=== PATIENT | female | born 1980 | race Hispanic/Latino ===

== ENCOUNTER → 2018-10-27 | Outpatient (CLI) | payer MEDICAID ==
[2018-10-27 15:59] VITALS: BP 136/80
== END | disposition home or self-care (01) ==
LOC: WHH 10:45
PROVIDERS: ATTEND Surgery
DX: L89.323 Pressure ulcer of left buttock, stage 3 (principal); L89.223 Pressure ulcer of left hip, stage 3; M41.9 Scoliosis, unspecified; G80.9 Cerebral palsy, unspecified
CPT/HCPCS: 11042; 87070; 87077; 87186; 99205; A6213

== ENCOUNTER → 2018-10-31 | Outpatient (CLI) | payer MEDICAID ==
[~2018-10-31] MED LIST: LIDOCAINE HCL 2% JELLY 5 ML ONE
[2018-10-31 13:38] VITALS: BP 145/110
== END | disposition home or self-care (01) ==
LOC: WHH 10:00
PROVIDERS: ATTEND Surgery
DX: L89.323 Pressure ulcer of left buttock, stage 3 (principal); L89.223 Pressure ulcer of left hip, stage 3; G80.9 Cerebral palsy, unspecified; M41.9 Scoliosis, unspecified
CPT/HCPCS: 99214; A6213

== ENCOUNTER → 2018-11-07 | Outpatient (CLI) | payer MEDICAID ==
[2018-11-07 13:41] VITALS: BP 125/88
== END | disposition home or self-care (01) ==
LOC: WHH 10:10
PROVIDERS: ATTEND Surgery
DX: L89.323 Pressure ulcer of left buttock, stage 3 (principal); L89.223 Pressure ulcer of left hip, stage 3; G80.9 Cerebral palsy, unspecified; M41.9 Scoliosis, unspecified
CPT/HCPCS: 11042; 97605; A6021

== ENCOUNTER → 2018-11-10 | Outpatient (CLI) | payer MEDICAID ==
[~2018-11-10] MED LIST changes: +HONEY 1 APPL/ML TUBE TP ONE; -LIDOCAINE HCL 2% JELLY 5 ML ONE
[2018-11-10 17:07] VITALS: BP 118/77
== END | disposition home or self-care (01) ==
LOC: WHH 14:00
PROVIDERS: ATTEND Surgery
DX: L89.323 Pressure ulcer of left buttock, stage 3 (principal); L89.223 Pressure ulcer of left hip, stage 3; G80.9 Cerebral palsy, unspecified; M41.9 Scoliosis, unspecified
CPT/HCPCS: 11042; 87070; 87077 ×2; 87186 ×2; A6209; A6213

== ENCOUNTER → 2018-11-17 | Outpatient (CLI) | payer MEDICAID ==
[~2018-11-17] MED LIST changes: -HONEY 1 APPL/ML TUBE TP ONE; +LIDOCAINE HCL 2% JELLY 5 ML ONE
[2018-11-17 15:29] VITALS: BP 100/64
== END | disposition home or self-care (01) ==
LOC: WHH 14:00
PROVIDERS: ATTEND Surgery
DX: L89.323 Pressure ulcer of left buttock, stage 3 (principal); L89.223 Pressure ulcer of left hip, stage 3; G80.9 Cerebral palsy, unspecified; M41.9 Scoliosis, unspecified
CPT/HCPCS: 11042; A6209; A6214

== ENCOUNTER → 2018-11-24 | Outpatient (CLI) | payer MEDICAID ==
[2018-11-24 14:58] VITALS: BP 136/109
== END | disposition home or self-care (01) ==
LOC: WHH 14:00
PROVIDERS: ATTEND Surgery
DX: L89.223 Pressure ulcer of left hip, stage 3 (principal); L89.323 Pressure ulcer of left buttock, stage 3; L89.159 Pressure ulcer of sacral region, unspecified stage; G80.9 Cerebral palsy, unspecified; M41.9 Scoliosis, unspecified
CPT/HCPCS: 99214; A6209; A6214

== ENCOUNTER → 2018-12-08 | Outpatient (CLI) | payer MEDICAID ==
[2018-12-08 16:36] VITALS: BP 128/55
== END | disposition home or self-care (01) ==
LOC: WHH 14:30
PROVIDERS: ATTEND Surgery
DX: L89.223 Pressure ulcer of left hip, stage 3 (principal); L89.323 Pressure ulcer of left buttock, stage 3; G80.9 Cerebral palsy, unspecified; M41.9 Scoliosis, unspecified
CPT/HCPCS: 11042; A6021; A6197; A6214

== ENCOUNTER → 2018-12-15 | Outpatient (CLI) | payer MEDICAID ==
[2018-12-15 16:04] VITALS: BP 91/56
== END | disposition home or self-care (01) ==
LOC: WHH 14:00
PROVIDERS: ATTEND Surgery
DX: L89.223 Pressure ulcer of left hip, stage 3 (principal); L89.323 Pressure ulcer of left buttock, stage 3; G80.9 Cerebral palsy, unspecified; E05.90 Thyrotoxicosis, unspecified without thyrotoxic crisis or storm; M41.9 Scoliosis, unspecified
CPT/HCPCS: 99214; A6021; A6197

== ENCOUNTER → 2018-12-29 | Outpatient (CLI) | payer MEDICAID ==
[2018-12-29 15:26] VITALS: BP 117/69
== END | disposition home or self-care (01) ==
LOC: WHH 14:00
PROVIDERS: ATTEND Surgery
DX: L89.223 Pressure ulcer of left hip, stage 3 (principal); L89.329 Pressure ulcer of left buttock, unspecified stage; G80.9 Cerebral palsy, unspecified; M41.9 Scoliosis, unspecified
CPT/HCPCS: 99215; A6022; A6214

== ENCOUNTER → 2019-01-05 | Outpatient (CLI) | payer MEDICAID ==
[2019-01-05 15:23] VITALS: BP 103/54
== END | disposition home or self-care (01) ==
LOC: WHH 14:00
PROVIDERS: ATTEND Surgery
DX: L89.223 Pressure ulcer of left hip, stage 3 (principal); L89.323 Pressure ulcer of left buttock, stage 3; G80.9 Cerebral palsy, unspecified; M41.9 Scoliosis, unspecified
CPT/HCPCS: 17250; A6022; A6209; A6213

== ENCOUNTER → 2019-01-12 | Outpatient (CLI) | payer MEDICAID ==
[~2019-01-12] MED LIST changes: +SILVER NITRATE APPLICATOR 1 SWAB TP ONE
[2019-01-12 15:14] VITALS: BP 96/56
== END | disposition home or self-care (01) ==
LOC: WHH 13:45
PROVIDERS: ATTEND Surgery
DX: L89.223 Pressure ulcer of left hip, stage 3 (principal); L89.323 Pressure ulcer of left buttock, stage 3; G80.9 Cerebral palsy, unspecified; M41.9 Scoliosis, unspecified; E05.90 Thyrotoxicosis, unspecified without thyrotoxic crisis or storm
CPT/HCPCS: 17250; A6207; A6213

== ENCOUNTER → 2019-01-19 | Outpatient (CLI) | payer MEDICAID ==
[~2019-01-19] MED LIST changes: -SILVER NITRATE APPLICATOR 1 SWAB TP ONE
[2019-01-19 15:30] VITALS: BP 133/75
== END | disposition home or self-care (01) ==
LOC: WHH 14:00
PROVIDERS: ATTEND Surgery
DX: L89.223 Pressure ulcer of left hip, stage 3 (principal); L89.323 Pressure ulcer of left buttock, stage 3; G80.9 Cerebral palsy, unspecified; M41.9 Scoliosis, unspecified; E05.90 Thyrotoxicosis, unspecified without thyrotoxic crisis or storm
CPT/HCPCS: 99214; A6197; A6207; A6213

== ENCOUNTER → 2019-02-02 | Outpatient (CLI) | payer MEDICAID ==
[2019-02-02 15:21] VITALS: BP 110/62
== END | disposition home or self-care (01) ==
LOC: WHH 14:00
PROVIDERS: ATTEND Surgery
DX: L89.323 Pressure ulcer of left buttock, stage 3 (principal); L89.223 Pressure ulcer of left hip, stage 3; G80.9 Cerebral palsy, unspecified; E05.90 Thyrotoxicosis, unspecified without thyrotoxic crisis or storm; M41.9 Scoliosis, unspecified
CPT/HCPCS: 99214; A6197; A6213

== ENCOUNTER → 2019-02-23 | Outpatient (CLI) | payer MEDICAID ==
[2019-02-23 15:57] VITALS: BP 96/50
== END | disposition home or self-care (01) ==
LOC: WHH 14:15
PROVIDERS: ATTEND Surgery
DX: L89.323 Pressure ulcer of left buttock, stage 3 (principal); L89.223 Pressure ulcer of left hip, stage 3; M41.9 Scoliosis, unspecified; E05.90 Thyrotoxicosis, unspecified without thyrotoxic crisis or storm; G80.9 Cerebral palsy, unspecified
CPT/HCPCS: 17250; A6197; A6207; A6213; 99214

== ENCOUNTER → 2019-03-02 | Outpatient (CLI) | payer MEDICAID ==
[~2019-03-02] MED LIST changes: -LIDOCAINE HCL 2% JELLY 5 ML ONE; +SILVER NITRATE APPLICATOR 1 SWAB TP ONE
[2019-03-02 17:17] VITALS: BP 114/87
== END | disposition home or self-care (01) ==
LOC: WHH 14:00
PROVIDERS: ATTEND Surgery
DX: L89.323 Pressure ulcer of left buttock, stage 3 (principal); L89.223 Pressure ulcer of left hip, stage 3; M41.9 Scoliosis, unspecified; G80.9 Cerebral palsy, unspecified; E05.90 Thyrotoxicosis, unspecified without thyrotoxic crisis or storm
CPT/HCPCS: 97605

== ENCOUNTER → 2019-03-09 | Outpatient (CLI) | payer MEDICAID ==
[~2019-03-09] MED LIST changes: +LIDOCAINE HCL 2% JELLY 5 ML ONE; -SILVER NITRATE APPLICATOR 1 SWAB TP ONE
[2019-03-09 16:17] VITALS: BP 134/106
== END | disposition home or self-care (01) ==
LOC: WHH 14:15
PROVIDERS: ATTEND Surgery
DX: L89.323 Pressure ulcer of left buttock, stage 3 (principal); L89.223 Pressure ulcer of left hip, stage 3; G80.9 Cerebral palsy, unspecified; E05.90 Thyrotoxicosis, unspecified without thyrotoxic crisis or storm; M41.9 Scoliosis, unspecified
CPT/HCPCS: 17250; 97605

== ENCOUNTER → 2019-03-16 | Outpatient (CLI) | payer MEDICAID ==
[2019-03-16 14:59] VITALS: BP 112/80
== END | disposition home or self-care (01) ==
LOC: WHH 14:00
PROVIDERS: ATTEND Surgery
DX: L89.323 Pressure ulcer of left buttock, stage 3 (principal); L89.223 Pressure ulcer of left hip, stage 3; G80.9 Cerebral palsy, unspecified; M41.9 Scoliosis, unspecified; E05.90 Thyrotoxicosis, unspecified without thyrotoxic crisis or storm
CPT/HCPCS: 17250; 97605

== ENCOUNTER → 2019-03-23 | Outpatient (CLI) | payer MEDICAID ==
[2019-03-23 15:46] VITALS: BP 106/72
--- NOTE | 2019-03-23 15:55 | NUR ---
Undermining to Wound #1: 0.2 cm @ 12 o'clock 0.2 cm @ 3 o'clock undermining to Wound #2: 0.7 cm @ 12 o'clock 0.9 cm @ 3 o'clock Addendum: 03/23/19 at 1559 by ANALILIA LIEJA RN [facility] Amended: Links added.
== END | disposition home or self-care (01) ==
LOC: WHH 14:00
PROVIDERS: ATTEND Surgery
DX: L89.323 Pressure ulcer of left buttock, stage 3 (principal); L89.223 Pressure ulcer of left hip, stage 3; G80.9 Cerebral palsy, unspecified; M41.9 Scoliosis, unspecified; E05.90 Thyrotoxicosis, unspecified without thyrotoxic crisis or storm
CPT/HCPCS: 17250 ×2; A6022; 97605

== ENCOUNTER → 2019-03-30 | Outpatient (CLI) | payer MEDICAID ==
[2019-03-30 17:30] VITALS: BP 113/86
== END | disposition home or self-care (01) ==
LOC: WHH 14:00
PROVIDERS: ATTEND Surgery
DX: L89.323 Pressure ulcer of left buttock, stage 3 (principal); L89.223 Pressure ulcer of left hip, stage 3; G80.9 Cerebral palsy, unspecified; M41.9 Scoliosis, unspecified; E05.90 Thyrotoxicosis, unspecified without thyrotoxic crisis or storm
CPT/HCPCS: 97605; A6207

== ENCOUNTER → 2019-04-06 | Outpatient (CLI) | payer MEDICAID ==
[2019-04-06 13:53] VITALS: BP 98/63
== END | disposition home or self-care (01) ==
LOC: WHH 11:00
PROVIDERS: ATTEND Surgery
DX: L89.323 Pressure ulcer of left buttock, stage 3 (principal); L89.223 Pressure ulcer of left hip, stage 3; G80.9 Cerebral palsy, unspecified; M41.9 Scoliosis, unspecified; E05.90 Thyrotoxicosis, unspecified without thyrotoxic crisis or storm
CPT/HCPCS: 17250

== ENCOUNTER → 2019-04-13 | Outpatient (CLI) | payer MEDICAID ==
[2019-04-13 15:01] VITALS: BP 84/57
== END | disposition home or self-care (01) ==
LOC: WHH 14:00
PROVIDERS: ATTEND Surgery
DX: L89.323 Pressure ulcer of left buttock, stage 3 (principal); L89.223 Pressure ulcer of left hip, stage 3; M41.9 Scoliosis, unspecified; G80.9 Cerebral palsy, unspecified; E05.90 Thyrotoxicosis, unspecified without thyrotoxic crisis or storm
CPT/HCPCS: 17250 ×2; A6021; 97605

== ENCOUNTER → 2019-04-27 | Outpatient (CLI) | payer MEDICAID ==
[~2019-04-27] MED LIST changes: -LIDOCAINE HCL 2% JELLY 5 ML ONE; +LIDOCAINE HCL 4% LTA SOL 4 ML VIAL ONE; +SILVER NITRATE APPLICATOR 1 SWAB TP ONE
[2019-04-27 14:53] VITALS: BP 85/56
== END | disposition home or self-care (01) ==
LOC: WHH 14:00
PROVIDERS: ATTEND Surgery
DX: L89.323 Pressure ulcer of left buttock, stage 3 (principal); L89.223 Pressure ulcer of left hip, stage 3; M41.9 Scoliosis, unspecified; G80.9 Cerebral palsy, unspecified; E05.90 Thyrotoxicosis, unspecified without thyrotoxic crisis or storm
CPT/HCPCS: 17250; A6021; 97605

== ENCOUNTER → 2019-05-04 | Outpatient (CLI) | payer MEDICAID ==
[~2019-05-04] MED LIST changes: +LIDOCAINE HCL 2% JELLY 5 ML ONE; -LIDOCAINE HCL 4% LTA SOL 4 ML VIAL ONE; -SILVER NITRATE APPLICATOR 1 SWAB TP ONE
[2019-05-04 13:28] VITALS: BP 98/70
== END | disposition home or self-care (01) ==
LOC: WHH 09:45
PROVIDERS: ATTEND Surgery
DX: L89.323 Pressure ulcer of left buttock, stage 3 (principal); L89.223 Pressure ulcer of left hip, stage 3; M41.9 Scoliosis, unspecified; G80.9 Cerebral palsy, unspecified; E05.90 Thyrotoxicosis, unspecified without thyrotoxic crisis or storm
CPT/HCPCS: 17250; 87070; 87077; 87186; 99214; A6021; A6209; 97605

== ENCOUNTER → 2019-05-11 | Outpatient (CLI) | payer MEDICAID ==
[2019-05-11 15:37] VITALS: BP 106/66
== END | disposition home or self-care (01) ==
LOC: WHH 14:00
PROVIDERS: ATTEND Surgery
DX: L89.323 Pressure ulcer of left buttock, stage 3 (principal); L89.223 Pressure ulcer of left hip, stage 3; G80.9 Cerebral palsy, unspecified; M41.9 Scoliosis, unspecified; E05.90 Thyrotoxicosis, unspecified without thyrotoxic crisis or storm
CPT/HCPCS: 97605; A6021; A6209

== ENCOUNTER → 2019-05-25 | Outpatient (CLI) | payer MEDICAID ==
[2019-05-25 15:09] VITALS: BP 83/53
== END | disposition home or self-care (01) ==
LOC: WHH 14:00
PROVIDERS: ATTEND Surgery
DX: L89.323 Pressure ulcer of left buttock, stage 3 (principal); L89.223 Pressure ulcer of left hip, stage 3; G80.9 Cerebral palsy, unspecified; M41.9 Scoliosis, unspecified; E05.90 Thyrotoxicosis, unspecified without thyrotoxic crisis or storm
CPT/HCPCS: 99214; A6021

== ENCOUNTER → 2019-06-08 | Outpatient (CLI) | payer MEDICAID ==
--- NOTE | 2019-06-12 08:50 | NUR ---
LATE ENTRY information documented is for visit 06-08-19 Addendum: 06/15/19 at 0905 by ABHILASH HUGHES RN/[facility]UVE Amended: Links added.
[2019-06-12 08:51] VITALS: BP 143/102
--- NOTE | 2019-06-12 08:58 | NUR ---
Late Entry information entered is for visit date 06-08-19 Addendum: 06/15/19 at 0859 by ABHILASH HUGHES RN/JUVE Amended: Links added.
== END | disposition home or self-care (01) ==
LOC: WHH 14:00
PROVIDERS: ATTEND Surgery
DX: L89.323 Pressure ulcer of left buttock, stage 3 (principal); L89.223 Pressure ulcer of left hip, stage 3; G80.9 Cerebral palsy, unspecified; M41.9 Scoliosis, unspecified; E05.90 Thyrotoxicosis, unspecified without thyrotoxic crisis or storm
CPT/HCPCS: 17250; A6021

== ENCOUNTER → 2019-06-29 | Outpatient (CLI) | payer MEDICAID ==
[2019-06-29 15:24] VITALS: BP 88/40
== END | disposition home or self-care (01) ==
LOC: WHH 14:00
PROVIDERS: ATTEND Surgery
DX: L89.323 Pressure ulcer of left buttock, stage 3 (principal); G80.8 Other cerebral palsy; M41.9 Scoliosis, unspecified; E05.90 Thyrotoxicosis, unspecified without thyrotoxic crisis or storm
CPT/HCPCS: 17250

== ENCOUNTER → 2019-07-06 | Outpatient (CLI) | payer MEDICAID ==
[2019-07-06 15:13] VITALS: BP 130/109
== END | disposition home or self-care (01) ==
LOC: WHH 14:00
PROVIDERS: ATTEND Surgery
DX: L89.323 Pressure ulcer of left buttock, stage 3 (principal); G80.8 Other cerebral palsy; M41.9 Scoliosis, unspecified; E05.90 Thyrotoxicosis, unspecified without thyrotoxic crisis or storm
CPT/HCPCS: 17250

== ENCOUNTER 2019-07-13 14:00 | Outpatient (CLI) | payer MEDICAID ==
[2019-07-13 14:43] VITALS: BP 135/72
== END 2019-07-13 14:59 | disposition home or self-care (01) ==
LOC: WHH 14:00
PROVIDERS: ATTEND Surgery
DX: L89.323 Pressure ulcer of left buttock, stage 3 (principal); G80.8 Other cerebral palsy; M41.9 Scoliosis, unspecified; E05.90 Thyrotoxicosis, unspecified without thyrotoxic crisis or storm
CPT/HCPCS: 99214